=== PATIENT | female | born 1980 | race African-American/Black ===

== ENCOUNTER 2019-12-24 20:07 | Observation (INO) ==
[2019-12-24] MEDS ORDERED: methylPREDNISolone SOD SUC 125 MG/2 ML VIAL IV STA (20:54)
[2019-12-24] MEDS ORDERED: EPINEPHrine 1 MG/ML VIAL SUBCUT STA (20:54)
[2019-12-24] MEDS ORDERED: FAMOTIDINE 20 MG/2 ML VIAL IV STA (20:54)
[2019-12-24 22:35] LABS: Basophils # 0.1 10*3/uL (0.0-0.2); Basophils % 0.6 % (0.0-0.8); Eosinophils # 0.2 10*3/uL (0.0-0.87); Hematocrit 33.2 VOL% (35.7-47.0); Hemoglobin 10.4 GM/DL (12.0-16.0); Immature Granulocytes % 0.3 %; Immature Granulocytes Absolute 0.03 #; Lymphocytes % 46.4 % (21.3-54.2); Mean Corpuscular HGB Conc 31.3 GM/DL (32-36); Mean Corpuscular Volume 87.4 FL (87-102); Mean Platelet Volume 9.5 FL (9.6-12.0); Monocytes % 6.4 % (1.7-12.7); Neutrophils % 44.3 % (38.7-73.9); Platelet Count 491 T/CUMM (130-400); Red Cell Distribution Width 16.7 % (9.3-17.3); White Blood Count 10.9 T/CUMM (4-12)
[2019-12-24] MEDS ORDERED: GLUCAGON 1 MG VIAL IM PRN (22:57)
[2019-12-24] MEDS ORDERED: DOCUSATE SODIUM 100 MG CAPSULE PO PRN (22:57)
[2019-12-24] MEDS ORDERED: NICOTINE 21 MG/24 HR PATCH TRANSDERM PRN (22:57)
[2019-12-24] MEDS ORDERED: guaiFENesin/DM ER 600-30 MG TABLET PO PRN (22:57)
[2019-12-24] MEDS ORDERED: ONDANSETRON 4 MG/2 ML VIAL IV PRN (22:57)
[2019-12-24] MEDS ORDERED: diphenhydrAMINE CAP 25 MG CAPSULE PO PRN (22:57)
[2019-12-24] MEDS ORDERED: ZALEPLON 5 MG CAPSULE PO PRN (22:57)
[2019-12-24] MEDS ORDERED: ACETAMINOPHEN 325 MG TABLET PO PRN (22:57)
[2019-12-24] MEDS ORDERED: hydrALAZINE 20 MG/1 ML VIAL IV PRN (22:57)
[2019-12-24] MEDS ORDERED: DEXTROSE 50% 25 GM/50 ML VIAL IV PRN (22:57)
[2019-12-24 22:58] LABS: Albumin 3.2 G/DL (3.4-5.0); Bilirubin,Total 0.4 MG/DL (0.2-1.0); Calcium 8.6 MG/DL (8.5-10.1); Osmolality,Calculated 276.7 MOS/KG (273-304)
[2019-12-24] MEDS ORDERED: CETIRIZINE 10 MG TABLET PO SCH (23:00)
[2019-12-25 03:07] LABS: Eosinophils 2 % (0-10); Lymphocytes 48 % (20-55); Platelet Estimate Increased; Segmented Neutrophils 47 % (50-85); Total Cells Counted 100
[2019-12-25 03:08] LABS: Hypochromasia 2+; Ovalocytes 1+; Target Cells 1+
[2019-12-25] MEDS: methylPREDNISolone SOD SUC 125 MG/2 ML VIAL IV SCH ×3 (04:59→23:08)
[2019-12-25] MEDS: SODIUM CHLORIDE 0.9% 1,000 ML IV SCH ×3 (05:00→23:19)
[2019-12-25] MEDS ORDERED: POTASSIUM CHLORIDE 20 MEQ TABLET PO ONE (06:00)
[2019-12-25] MEDS: POTASSIUM CHLORIDE RIDER 10 MEQ in PREMIX 1 EACH IV PRN ×3 (06:16→14:01)
[2019-12-25 06:29] LABS: Basophils % 0.1 % (0.0-0.8); Hematocrit 34.7 VOL% (35.7-47.0); Hemoglobin 10.7 GM/DL (12.0-16.0); Immature Granulocytes % 0.4 %; Immature Granulocytes Absolute 0.03 #; Lymphocytes # 0.9 10*3/uL (1.4-4.0); Lymphocytes % 13.3 % (21.3-54.2); Mean Corpuscular HGB Conc 30.8 GM/DL (32-36); Mean Corpuscular Volume 87.6 FL (87-102); Mean Platelet Volume 10.2 FL (9.6-12.0); Monocytes % 0.9 % (1.7-12.7); Neutrophils % 85.3 % (38.7-73.9); Platelet Count 485 T/CUMM (130-400); Red Blood Count 3.96 MC/CUMM (3.8-5.5); White Blood Count 6.8 T/CUMM (4-12)
[2019-12-25 06:50] LABS: Osmolality,Calculated 274.8 MOS/KG (273-304)
[2019-12-25 07:10] LABS: Hypochromasia 1+; Lymphocytes 21 % (20-55); Microcytosis Slight; Platelet Estimate Adequate; Segmented Neutrophils 79 % (50-85); Total Cells Counted 100
[2019-12-25 08:28] LABS: Sedimentation Rate-Westergren 70 MM/HR (0-20)
[2019-12-25] MEDS: FAMOTIDINE 20 MG/2 ML VIAL IV SCH ×2 (10:15→23:07)
[2019-12-25] MEDS ORDERED: diphenhydrAMINE 2% CREAM 28 GM TUBE TOP PRN (23:26)
[2019-12-26] MEDS: SODIUM CHLORIDE 0.9% 1,000 ML IV SCH (02:20)
[2019-12-26] MEDS: methylPREDNISolone SOD SUC 125 MG/2 ML VIAL IV SCH ×2 (05:12→14:20)
[2019-12-26] MEDS: FAMOTIDINE 20 MG/2 ML VIAL IV SCH (10:45)
[2019-12-26 12:31] VITALS: BP 131/93
== END 2019-12-26 14:30 | disposition home or self-care (01) ==
LOC: N.ED 20:07 → N.EDINP 20:07 → SUATTDRO 22:57 → N.EDINP 12-25 03:55 → N.3E 12-25 04:16
PROVIDERS: ADMIT Internal Medicine; ATTEND Internal Medicine